=== PATIENT | male | born 1965 | race Caucasian/White ===

== ENCOUNTER → 2019-10-05 | Outpatient (CLI) | payer OTHER ==
[~2019-10-05] MED LIST: MOTRIN800 MG PO
== END | disposition home or self-care (01) ==
LOC: RAD 16:03
DX: M47.816 Spondylosis without myelopathy or radiculopathy, lumbar region (principal); M54.6 Pain in thoracic spine

== ENCOUNTER 2022-03-30 15:31 | Emergency (ER) | payer OTHER ==
[~2022-03-30] VITALS: Ht 180.3 cm; Wt 78.0 kg
[~2022-03-30 15:31] MED LIST changes: +ASPIRIN ADULT L81 M1 PO; +LISINOPRIL20 MG PO; +OMEPRAZOLE40 MG PO
[2022-03-30 16:08] LABS: BASO # 0.1 10*3/uL (0.0-0.1); BASO % 0.7 % (0.0-1.0); EOS # 0.2 10*3/uL (0.0-0.4); EOS % 2.2 % (1.0-4.0); LYMPH % 27.5 % (27.0-41.0); MEAN CELL VOLUME 87.9 fl (80.0-94.0); MEAN CORPUSCULAR HGB 29.7 pg (27.0-31.0); MEAN CORPUSCULAR HGB CONC 33.8 g/dl (33.0-37.0); MEAN PLATELET VOLUME 10.7 fl (9.6-12.3); MONO # 0.7 10*3/uL (0.1-1.0); MONO % 6.3 % (3.0-9.0); NEUT # 6.9 10*3/uL (2.3-7.9); NEUT % 63.1 % (47.0-73.0); PLATELET COUNT AUTOMATED 259 10*3/uL (130-400); RED BLOOD COUNT 5.69 10*6/uL (4.50-5.90); RED CELL DISTRI WIDTH 13.2 % (0-14.5); WHITE BLOOD COUNT 10.9 10*3/uL (4.8-10.8)
[2022-03-30 16:19] LABS: ACT PARTIAL THROMBO TIME 30.8 SECONDS (20.0-32.1)
[2022-03-30 16:26] LABS: ALKALINE PHOSPHATASE 64 U/L (45-117); BUN 7 mg/dl (7-24); CHLORIDE 111 mmol/L (98-107); CREATININE 0.89 mg/dL (0.70-1.30); LIPASE 170 U/L (73-393); POTASSIUM 3.6 mmol/L (3.5-5.1); SGOT/AST 12 IU/L (3-35); SGPT/ALT 16 U/L (12-78); SODIUM 141 mmol/L (136-145); TOTAL PROTEIN 6.8 gm/dL (6.4-8.2)
== END 2022-03-30 19:26 | disposition left against medical advice (07) ==
LOC: ED 15:31
PROVIDERS: Emergency Medicine
DX: R53.1 Weakness (principal); R51.9 Headache, unspecified; Z79.899 Other long term (current) drug therapy; Z79.82 Long term (current) use of aspirin; Z98.890 Other specified postprocedural states